=== PATIENT | male | born 1980 | race Caucasian/White ===

== ENCOUNTER 2019-03-17 01:03 | Inpatient (IN) | payer OTHER ==
[~2019-03-17] VITALS: Ht 175.3 cm; Wt 67.1 kg
[2019-03-17] MEDS ORDERED: IV NS 0.9% 1,000 ML BAG IV ONE ×2 (01:30→03:30)
[2019-03-17 01:36] LABS: BASOPHILS % (AUTO) 0.4 % (0.0-2.0); EOSINOPHILS % (AUTO) 1.4 % (0.0-6.0); HEMATOCRIT 46 % (39-51); LYMPHOCYTES # (AUTO) 3.2 /CMM (0.8-4.8); LYMPHOCYTES % (AUTO) 34.7 % (20.0-44.0); MEAN CORPUSCULAR HGB CONC 35 g/dl (31.0-36.0); MEAN CORPUSCULAR VOLUME 89 fL (80-96); MONOCYTES # (AUTO) 0.8 /CMM (0.1-1.30); MONOCYTES % (AUTO) 8.5 % (2.0-12.0); PLATELET COUNT (AUTO) 332 /CMM (150-450); WHITE BLOOD COUNT (AUTO) 9.2 K/uL (4.3-11.0)
--- NOTE | 2019-03-17 01:43 | NUR ---
BROUGHT IN BY AMBULANCE REPORTED S/P FALL AND SYNCOPE. A, OX4, DROWSY, BREATHING EVENLY. PLACED ON MONITOR. ECG WAS OBTAINED. SEEN BY MD. ON CONTINUOUS MONITOR . WILL F/U W/ MD'S ORDERS.
[2019-03-17 01:48] LABS: CALCIUM, SERUM 8.8 mg/dL (8.5-10.1); CARBON DIOXIDE 25 mmol/L (21-32); CHLORIDE 102 mmol/L (98-107); CREATININE 1.1 mg/dL (0.6-1.3); GLUCOSE 108 mg/dL (74-106); SODIUM SERUM 141 mmol/L (136-145); UREA NITROGEN, BLOOD 13 mg/dL (7-18)
[2019-03-17 01:50] LABS: POTASSIUM 2.8 mmol/L (3.5-5.1)
--- NOTE | 2019-03-17 01:50 | NUR ---
PT LEFT FOR CT
[2019-03-17] MEDS ORDERED: POTASSIUM CHLORIDE 10 MEQ/50 ML PREMIXED IVPB FOR PERIPHERAL LINE IV ONE (02:00)
[2019-03-17] MEDS ORDERED: ONDANSETRON HCL/PF 4 MG/2 ML VIAL IV ONE (02:00)
--- NOTE | 2019-03-17 02:20 | NUR ---
18G L HAND IV, POTASIUM BAG 11/13 STARTED IN ED
[2019-03-17] MEDS: Magnesium 1GM/D5W 100ML PREMIX 100 ML IV SCH ×2 (02:36→03:56)
--- NOTE | 2019-03-17 02:37 | NUR ---
magnesium igr started on PIV RAC 20G. bag 1 out of 2
[2019-03-17] MEDS ORDERED: IV NS 0.9% 1,000 ML IV PRN (03:03)
[2019-03-17] MEDS ORDERED: LIDOCAINE 1%-EPI 1:100,000 20 ML VIAL ONE (03:11)
--- NOTE | 2019-03-17 03:20 | NUR ---
POTASIUM BAG 12/14 STARTED IN ED
[2019-03-17] MEDS ORDERED: ACETAMINOPHEN 325 MG TABLET PO PRN (03:30)
[2019-03-17] MEDS ORDERED: Z GUARD REMEDY 2 OZ OINT TP PRN (03:30)
[2019-03-17] MEDS ORDERED: ONDANSETRON HCL/PF 4 MG/2 ML VIAL IVP PRN (03:30)
[2019-03-17] MEDS ORDERED: TDAP [DIPH/PERTUSSIS/TET] 0.5 ML VIAL IM ONE ×2 (03:30→03:44)
[2019-03-17] MEDS ORDERED: HYDROCODONE/APAP 5/325MG 1 EACH TABLET PO PRN (03:30)
[2019-03-17] MEDS ORDERED: ZOLPIDEM TARTRATE 5 MG TABLET PO PRN (03:30)
[2019-03-17] MEDS ORDERED: MAG HYDROX/AL HYDROX/SIMETH 30 ML UDC PO PRN (03:30)
[2019-03-17] MEDS ORDERED: MAGNESIUM HYDROXIDE 30 ML UDC PO PRN (03:30)
[2019-03-17] MEDS ORDERED: LIDOCAINE 1%-EPI 1:100,000 20 ML VIAL TP ONE (03:30)
[2019-03-17] MEDS ORDERED: Magnesium 1GM/D5W 100ML PREMIX 100 ML IV ONE (03:44)
--- NOTE | 2019-03-17 04:16 | NUR ---
report given to Justine on third floor
[2019-03-17] MEDS ORDERED: POTASSIUM CL. PREMIX PERIPHER. 100 ML ONE (04:21)
--- NOTE | 2019-03-17 04:40 | NUR ---
GROUNDS AND NURSERY SPECIALIST OPENING NOTES RECEIVED PATIENT FROM ER VIA [facility]. PATIENT IS ALERT AND ORIENTED X4, VERBALLY RESPONSIVE, ABLE TO MAKE NEEDS KNOWN. (MATTIE) AT BEDSIDE. BREATHING EVEN AND UNLABORED. NO SOB NOTED. TOLERATING ROOM AIR. NO COMPLAINTS OF PAIN OR DISCOMFORT. NO FACIAL GRIMACING. IV ON LEFT HAND AND RIGHT AC INTACT AND PATENT WITH MAGNESIUM AND POTASSIUM CURRENTLY INFUSING. SKIN DRY AND WARM TO TOUCH. AFEBRILE. PATIENT NOTED WITH DRY DRESSING ON FOREHEAD - CLEAN DRY AND INTACT. ORIENTED TO THE USE OF UNIT AMENITIES. SKIN CHECK RENDERED WITH ONLY THE LACERATION ON THE FOREHEAD WITH 7 RODRIGO NOTED. PICTURE TAKEN AND PLACE IN CHART. ALL OTHER NEEDS ATTENDED TO. SAFETY MEASURES IN PLACE. CALL LIGHT WITHIN REACH. WILL CONTINUE TO MONITOR.
--- NOTE | 2019-03-17 04:40 | NUR ---
pt was transferred to the third floor room 315-2 under ACLS protocol in stable condition.
--- NOTE | 2019-03-17 04:41 | NUR ---
Floor RN made aware of the rest of potassium IV (2 bags) to be given.
[2019-03-17 04:45] VITALS: BP 116/79
[2019-03-17 05:09] LABS: APPEARANCE,URINE CLEAR (CLEAR); BILIRUBIN,URINE NEGATIVE (NEGATIVE); BLOOD, URINE NEGATIVE Ery/uL (NEGATIVE); COLOR,URINE YELLOW (YELLOW); LEUKOCYTE ESTERASE ,URINE NEGATIVE (NEGATIVE); NITRITE, URINE NEGATIVE (NEGATIVE); PROTEIN,URINE NEGATIVE (NEGATIVE); UGLUCOSE NEGATIVE (NEGATIVE); UROBILINOGEN,URINE 0.2 EU/dL (0.2)
[2019-03-17 05:16] LABS: KETONES,URINE NEGATIVE (NEGATIVE)
--- NOTE | 2019-03-17 06:42 | NUR ---
SLOT OPERATIONS DIRECTOR NOTES PATIENT RESTING IN BED. IN NO DISTRESS. NO ACUTE CHANGES. SR ON TELE MONITOR. AT BEDSIDE. ALL IV LINE INTACT AND PATENT. DRESSING ON FOREHEAD CLEAN DRY AND INTACT. NO COMPLAINTS OF PAIN OR DISCOMFORT. ALL OTHER NEEDS MET. SAFETY MEASURES IN PLACE. CALL LIGHT WITHIN REACH. WILL ENDORSE TO ONCOMING NURSE FOR ANNETTE.
--- NOTE | 2019-03-17 07:30 | NUR ---
received pt. this am alert and oriented x3.no complaints.iv infusing.instructed not to get oob without help if dizzy.pt. verbalized understanding.
[2019-03-17 08:00] VITALS: BP 113/71
--- NOTE | 2019-03-17 08:40 | NUR ---
dr. tay in to see pt.
[2019-03-17 09:32] LABS: BASOPHILS % (AUTO) 0.2 % (0.0-2.0); EOSINOPHILS % (AUTO) 0.2 % (0.0-6.0); HEMATOCRIT 42 % (39-51); HEMOGLOBIN 14.4 g/dL (13.5-17.5); LYMPHOCYTES # (AUTO) 1.1 /CMM (0.8-4.8); LYMPHOCYTES % (AUTO) 14.1 % (20.0-44.0); MEAN CORPUSCULAR HGB CONC 35 g/dl (31.0-36.0); MEAN CORPUSCULAR VOLUME 89 fL (80-96); MONOCYTES # (AUTO) 0.5 /CMM (0.1-1.30); MONOCYTES % (AUTO) 6.5 % (2.0-12.0); NEUTROPHILS # (AUTO) 6.1 /CMM (1.8-8.9); PLATELET COUNT (AUTO) 238 /CMM (150-450); RED BLOOD CELL COUNT(AUTO) 4.67 MIL/uL (4.5-6.0); WHITE BLOOD COUNT (AUTO) 7.7 K/uL (4.3-11.0)
[2019-03-17 09:40] LABS: BILIRUBIN,TOTAL 0.8 mg/dL (0.2-1.0); CALCIUM, SERUM 8.2 mg/dL (8.5-10.1); CREATININE 0.8 mg/dL (0.6-1.3); MAGNESIUM 2.3 mg/dL (1.8-2.4); TOTAL PROTEIN, SERUM 6.9 g/dL (6.4-8.2)
--- NOTE | 2019-03-17 10:30 | NUR ---
in to visit.
[2019-03-17 10:40] LABS: THYROID STIMULATING HORMONE 0.975 uIU/mL (0.358-3.74)
--- NOTE | 2019-03-17 11:05 | NUR ---
WOUND CARE CONSULT: PT PRESENTS WITH HEAD LACERATION WITH SOME OOZING. RECOMMEND SURGICAL CONSULT. DR SINGH NOTIFIED OF CONSULT REQUEST. WILL SEE PRN.
[2019-03-17 16:00] VITALS: BP 115/71
--- NOTE | 2019-03-17 17:00 | NUR ---
guilherme sprague rug cutter helper in to see ptAndrade
--- NOTE | 2019-03-17 18:00 | NUR ---
dc order given.
--- NOTE | 2019-03-17 18:30 | NUR ---
hep locks out.dc instructions given.belonging sheet signed.given all papers to follow up with md's.taken to lobby in w/c accompanied by director occupational and .
== END 2019-03-17 18:30 | disposition home or self-care (01) | DRG 897 ==
LOC: ER 01:05 → TELE 03:22 → MED 09:06
PROVIDERS: ADMIT Registered Nurse; ATTEND Registered Nurse
PROC: 0JQ03ZZ Repair Scalp Subcutaneous Tissue and Fascia, Percutaneous Approach (ICD-10-PCS; principal; 2019-03-17)
DX: F10.129 Alcohol abuse with intoxication, unspecified (principal); W07.XXXA Fall from chair, initial encounter; Y92.89 Other specified places as the place of occurrence of the external cause; S01.01XA Laceration without foreign body of scalp, initial encounter; I48.91 Unspecified atrial fibrillation; E87.8 Other disorders of electrolyte and fluid balance, not elsewhere classified; E87.6 Hypokalemia; Y90.1 Blood alcohol level of 20-39 mg/100 ml
CPT/HCPCS: 36415; 70450-TC; 71045-TC; 72125-TC; 80048-TC; 80053-TC; 81000-TC; 82962-TC; 83735-TC; 84100-TC; 84439-TC; 84443-TC; 84484-TC; 85025-TC; 87081-TC; 87086-TC; 90715; 93307-TC; G0378; G0480; J2405; J3475; J3480; J3490; J7030